=== PATIENT | female | born 2000 ===

== ENCOUNTER 2021-05-31 00:47 | Inpatient (IN) | payer MEDICAID, SELFPAY ==
[2021-05-31] VITALS (7 sets, daily range): BP systolic 103–150; BP diastolic 59–91; PULSE 86–109; RESP 16–21; TEMP 36.1–37; O2SAT 92–97; BMI 72.4
--- NOTE | 2021-05-31 02:46 | PC.NURSE ---
21/F direct admit from [place], pt lives with her sister and aunt. Reports history of depression. Pt woke up this morning, went to the kitchen and grabbed a knife with intent to cut her wrists. No precipitating factors. Pt does not know why she wanted to kill herself. She denies SI at this time.
[2021-05-31 06:39] LABS: Glucose Point of Care 94 mg/dL (70-110)
[2021-05-31] MEDS: metformin XR 500 MG Tablet 750 MG PO ×2 (08:52→17:30)
[2021-05-31] MEDS: amlodipine 10 mg Tablet PO (08:52)
[2021-05-31] MEDS: levothyroxine 25 mcg Tablet PO (08:53)
[2021-05-31] MEDS: metoprolol succinate ER (24 HR) 25 mg Tablet PO (08:53)
[2021-05-31] MEDS: TRAMadol 50 mg Tablet PO (08:53)
[2021-05-31] MEDS: pantoprazole DR 40 mg Tablet PO (08:53)
[2021-05-31] MEDS: sertraline 100 mg Tablet PO (08:53)
[2021-05-31] MEDS: nicotine 21 mg Patch 1 PATCH TRANSDERMA (08:55)
[2021-05-31 11:32] LABS: Glucose Point of Care 88 mg/dL (70-110)
[2021-05-31] MEDS: nicotine 2 mg Gum BUCCAL ×2 (15:06→17:32)
[2021-05-31 16:44] LABS: Glucose Point of Care 101 mg/dL (70-110)
[2021-05-31] MEDS: montelukast sodium 10 mg Tablet PO (17:32)
--- NOTE | 2021-05-31 20:20 | P.HP_ITS ---
Providers/Chief Complaint Admitting Physician: Amish Snyder MD Chief Complaint: SI HPI NPU History of Present Illness Haylee Malki is a 21 year old female with depression, anxiety, morbid obesity, and sleep eating who was transferred from an outside ED due to suicide attempt. Apparently her sister was trying to wake her up while she was sleepwalking, and she got agitated, grabbed a knife, and tried to stab herself. The patient is not exactly sure why this happened. She does report depression, with insomnia, increased appetite, poor energy and motivation, and suicidal ideation over the past few weeks. On my questioning, she has no history of manic symptoms but she does say she has had a diagnosis of Bipolar Disorder in the past. She does say she has had periods of intense anger. She does have significant anxiety. No auditory or visual hallucinations. She says she drinks 1 or 2 beers once or twice a month and otherwise has no other drug use. She does smoke cigarettes at 1-1/2 packs/day. She says she has never been hospitalized for psychiatric reasons before. She recently saw a psychiatric provider and was started on Zoloft 100 mg daily and Seroquel 50 mg twice daily. She has been in therapy in the past through [facility] in [place], [place] and has made contact with them to restart her treatment. She says her diagnoses have included bipolar disorder, depression, anxiety, PTSD, ADHD and sensory integration issues. Psychiatric history: As above. Substance use history: As above. Family history: Patient says that her maternal aunt and maternal grandfather magdiel th had bipolar disorder. She has a cousin who has had suicidal ideation. There is no substance abuse in the family. Psychosocial history: She grew up in [facility] and dropped out of school in the 10th grade after her father . She has never been or had any children. Legal history: No legal difficulties. Medical history: She says she has polycystic ovarian syndrome, asthma, and amblyopia. She also has morbid obesity. Meds NPU Home Medications Medication Instructions Recorded Confirmed Last Taken Type adalimumab [Humira] 40 mg SUBCUT Q14D 05/31/21 05/31/21 Unknown History albuterol sulfate 2 inh INHALATION Q4H 05/31/21 05/31/21 Unknown History albuterol sulfate 2.5 mg INHALATION QID PRN 05/31/21 05/31/21 Unknown History amlodipine 10 mg PO DAILY 05/31/21 05/31/21 Unknown History apremilast 30 mg PO BID 05/31/21 05/31/21 Unknown History fluticasone propion-salmeterol 1 inh INHALATION BID 05/31/21 05/31/21 Unknown History [Advair Diskus] fluticasone propionate [Flovent 1 puff INHALATION BID 05/31/21 05/31/21 Unknown History HFA] levothyroxine 25 mcg PO DAILY 05/31/21 05/31/21 Unknown History metformin 750 mg PO BID 05/31/21 05/31/21 Unknown History metoprolol succinate 25 mg PO DAILY 05/31/21 05/31/21 Unknown History montelukast 10 mg PO QPM 05/31/21 05/31/21 Unknown History norethindrone (contraceptive) 0.35 mg PO DAILY 05/31/21 05/31/21 Unknown History norethindrone (contraceptive) 0.35 mg PO DAILY 05/31/21 05/31/21 Unknown History [Ortho Micronor] omeprazole 40 mg PO DAILY 05/31/21 05/31/21 Unknown History sertraline 100 mg PO DAILY 05/31/21 05/31/21 Unknown History tramadol 50 mg PO DAILY 05/31/21 05/31/21 Unknown History Allergies Allergy/AdvReac Type Severity Reaction Status Date / Time clove Allergy Unknown Verified 05/31/21 01:10 Mental Status Exam MSE Comments: I met with the patient in the dayroom, and she was dressed in hospital scrubs and appropriately groomed. She was calm, cooperative, interactive, and made fair eye contact. Some psychomotor agitation. Speech is at a regular rate and rhythm, normal volume, good articulation, not pressured. Alert, oriented to person, place, time, situation. Attention and concentration were intact. Able to spell the word WORLD correctly forwards and backwards. Memory is intact. Remembers 3/3 words immediately and 3/3 at 3 minutes. He knows the names of the past 5 presidents. Mood is depressed and anxious. Affect is pleasant. Thought process is logical and goal-directed. Thought content: Denies auditory and visual hallucinations. No delusions or paranoia are noted. No current suicidal ideation, and no homicidal ideation. Fund of knowledge is intact to exam. Language is intact to exam. Insight and judgment appear to be fair. Impulse control is fair as well. Vitals/I&O/Wt Last Vital Signs Temp 98.6 F 05/31/21 06:00 Pulse 94 05/31/21 06:00 Resp 18 05/31/21 06:00 BP 132/85 05/31/21 06:00 Pulse Ox 97 05/31/21 06:00 Weight last 48 hrs Weight 185.519 kg A&P Additional A&P Information 1. Continue current medication. 2. Continue every 15 minute checks for safety. 3. Encourage individual, group and milieu therapies. 4. Encourage sober living treatment after discharge at the highest level of care to which he is willing to commit. Attestations NPU Medical Necessity Statement*: Psychiatric hospitalization is medically necessary to prevent access to lethal means, to reevaluate medication, and to coordinate a safe discharge. Patient will be in the hospital for over 2 midnights. Likely length of stay is 3 to 5 days. Coding Level of Care Code Acute Table Games Manager for Isis Tejeda
[2021-06-01 06:00] VITALS: BP 120/72; PULSE 83; RESP 18; TEMP 36.7; O2SAT 97
[2021-06-01 07:09] LABS: Glucose Point of Care 100 mg/dL (70-110)
[2021-06-01] MEDS: nicotine 21 mg Patch 1 PATCH TRANSDERMA (07:56)
[2021-06-01] MEDS: sertraline 100 mg Tablet PO (07:57)
[2021-06-01] MEDS: metformin XR 500 MG Tablet 750 MG PO ×2 (07:57→16:51)
[2021-06-01] MEDS: pantoprazole DR 40 mg Tablet PO (07:58)
[2021-06-01] MEDS: TRAMadol 50 mg Tablet PO (07:58)
[2021-06-01] MEDS: levothyroxine 25 mcg Tablet PO (07:58)
[2021-06-01] MEDS: metoprolol succinate ER (24 HR) 25 mg Tablet PO (07:58)
[2021-06-01] MEDS: amlodipine 10 mg Tablet PO (07:59)
[2021-06-01 09:37] VITALS: PULSE 104; RESP 20; O2SAT 96
[2021-06-01 14:00] VITALS: BP 123/85; PULSE 86; RESP 18; TEMP 36.8; O2SAT 96
--- NOTE | 2021-06-01 14:11 | P.PN_ITS ---
Subjective NPU Subjective: Interval history: The patient says her mood is a little better today, but she is tired. She had an okay night and slept okay. No nightmares. She is not feeling as down on herself. Denies suicidal ideation. She says the groups have been helping her. She says, I found out that there are people who want me around. For example her sister. She denies medication side effects. We talked about her medication. I suggested adding Wellbutrin to augment the Zoloft and she gave consent. Mental Status Exam MSE Comments: I met with the patient in the dayroom, and she was dressed in hospital scrubs and appropriately groomed. She was calm, cooperative, interactive, and made fair eye contact. Some psychomotor agitation. Speech is at a regular rate and rhythm, normal volume, good articulation, not pressured. Alert, oriented to person, place, time, situation. Attention and concentration were intact to exam. Memory is adequate for exam. Mood is depressed and anxious. Affect is pleasant. Thought process is logical and goal-directed. Thought content: Denies auditory and visual hallucinations. No delusions or paranoia are noted. No current suicidal ideation, and no homicidal ideation. Insight and judgment appear to be fair. Impulse control is fair as well. Vitals/I&O/Wt Last Vital Signs Temp 98.1 F 06/01/21 06:00 Pulse 104 H 06/01/21 09:37 Resp 20 H 06/01/21 09:37 BP 120/72 06/01/21 06:00 Pulse Ox 96 06/01/21 09:37 Weight last 48 hrs Weight 185.519 kg A&P Assessment and plan (1) Major depressive disorder, recurrent severe without psychotic features: Status: Acute (2) Anxiety disorder, unspecified: Status: Acute (3) Parasomnia, unspecified: Status: Acute Additional A&P Information 1. Continue current medication. Add Wellbutrin SR 150 mg daily to augment Zoloft antidepressant effect. 2. Continue every 15 minute checks for safety. 3. Encourage individual, group and milieu therapies. 4. Encourage sober living treatment after discharge at the highest level of care to which he is willing to commit. Attestations NPU Medical Necessity Statement*: Psychiatric hospitalization is medically necessary to prevent access to lethal means, to reevaluate medication, and to coordinate a safe discharge. Likely length of stay is 2 to 4 days. Coding Level of Care Code Acute Manager Fine for Chg Fwd Diagnoses Major depressive disorder, recurrent severe without psychotic features F33.2 Anxiety disorder, unspecified F41.9 Parasomnia, unspecified G47.50
[2021-06-01] MEDS: montelukast sodium 10 mg Tablet PO (16:51)
[2021-06-01] MEDS: nicotine 2 mg Gum BUCCAL (18:33)
[2021-06-01 20:00] VITALS: BP 130/93; PULSE 82; RESP 16; TEMP 36.2
[2021-06-01] MEDS: buPROPion SR (12 HR) 150 mg Tablet PO (21:08)
[2021-06-01 21:15] VITALS: PULSE 87; RESP 18; O2SAT 97
[2021-06-01] MEDS: acetaminophen 325 mg Tablet 650 MG PO (21:32)
[2021-06-01 22:00] VITALS: BP 130/93; PULSE 87; RESP 18; TEMP 36.2; O2SAT 97
[2021-06-02 06:00] VITALS: BP 124/74; PULSE 88; RESP 20; TEMP 36.6; O2SAT 93
[2021-06-02 06:39] LABS: Glucose Point of Care 94 mg/dL (70-110)
[2021-06-02] MEDS: buPROPion SR (12 HR) 150 mg Tablet PO ×2 (08:06→20:51)
[2021-06-02] MEDS: sertraline 100 mg Tablet PO (08:06)
[2021-06-02] MEDS: TRAMadol 50 mg Tablet PO (08:06)
[2021-06-02] MEDS: levothyroxine 25 mcg Tablet PO (08:06)
[2021-06-02] MEDS: metoprolol succinate ER (24 HR) 25 mg Tablet PO (08:07)
[2021-06-02] MEDS: pantoprazole DR 40 mg Tablet PO (08:07)
[2021-06-02] MEDS: amlodipine 10 mg Tablet PO (08:07)
[2021-06-02] MEDS: metformin XR 500 MG Tablet 750 MG PO ×2 (08:08→17:00)
[2021-06-02] MEDS: nicotine 21 mg Patch 1 PATCH TRANSDERMA (08:09)
[2021-06-02 09:43] VITALS: PULSE 90; RESP 20; O2SAT 98
[2021-06-02] MEDS: acetaminophen 325 mg Tablet 650 MG PO (11:58)
[2021-06-02 13:57] VITALS: BP 112/72; PULSE 96; RESP 20; TEMP 36.6; O2SAT 95
[2021-06-02] MEDS: calcium carbonate 500 mg Chew Tablet PO (15:56)
--- NOTE | 2021-06-02 15:56 | PC.NURSE ---
PRN TUMS 500 MG GIVEN PO PER PT C/O INDIGESTION
[2021-06-02] MEDS: montelukast sodium 10 mg Tablet PO (17:00)
--- NOTE | 2021-06-02 17:28 | PM.NPN ---
Subjective NPU Subjective: Interval history: Patient presents today reporting that she is doing pretty good though she would like to restart her Prilosec, however she is already getting medication for that so we discussed that she can start the Prilosec when she gets home. Additionally discussed the fact that her Wellbutrin SR evening dose was later than it should be likely contributing to her insomnia. We discussed the risk of its alternatives of switching that dose to earlier in the day last evening and she understood and agreed proceed as documented in this note. Mental Status Exam MSE Comments: This is a morbidly obese white female in hospital scrubs with adequate grooming and eye contact. No abnormal movements except for mild psychomotor retardation. Cooperative with exam in no acute distress. Speech was decreased rate and volume. Mood described as a little better, affect congruent. Thought is organized. Thought content: Patient denied suicidal or homicidal ideation, there are no delusions reported or noted, she denied any auditory or visual hallucinations. Attention and concentration appeared intact and memory appeared reliable but never formally tested. She alert and oriented x3. Insight and judgment appear fair impulse control is limited. Vitals/I&O/Wt Last Vital Signs Temp 97.9 F 06/02/21 13:57 Pulse 96 06/02/21 13:57 Resp 20 H 06/02/21 13:57 BP 112/72 06/02/21 13:57 Pulse Ox 95 06/02/21 13:57 A&P Additional A&P Information (1) Major depressive disorder, recurrent severe without psychotic features: (2) Anxiety disorder, unspecified: (3) Parasomnia, unspecified: Additional A&P Information 1. Continue current medication. Switch Wellbutrin SR evening dose to between 5 and 6 PM. 2. Continue every 15 minute checks for safety. 3. Encourage individual, group and milieu therapies. 4. Encourage sober living treatment after discharge at the highest level of care to which he is willing to commit. Attestations NPU Medical Necessity Statement*: Psychiatric hospitalization is medically necessary to prevent access to lethal means, to reevaluate medication, and to coordinate a safe discharge. Likely length of stay is 1-3 days. Coding Level of Care Code Acute Director Hardware for Isis Tejeda
--- NOTE | 2021-06-02 17:54 | PC.NURSE ---
1700 blood sugar not done, pt refused
[2021-06-02 19:38] LABS: Glucose Point of Care 108 mg/dL (70-110)
[2021-06-02 20:46] VITALS: PULSE 86; RESP 18; O2SAT 95
[2021-06-02] MEDS: ondansetron 4 MG Tablet PO (20:51)
[2021-06-02 21:50] VITALS: BP 150/82; PULSE 102; RESP 18; TEMP 36.2; O2SAT 92
[2021-06-03] MEDS: metformin XR 500 MG Tablet 750 MG PO ×2 (08:21→17:00)
[2021-06-03] MEDS: TRAMadol 50 mg Tablet PO (08:21)
[2021-06-03] MEDS: levothyroxine 25 mcg Tablet PO (08:21)
[2021-06-03] MEDS: sertraline 100 mg Tablet PO (08:21)
[2021-06-03] MEDS: amlodipine 10 mg Tablet PO (08:21)
[2021-06-03] MEDS: pantoprazole DR 40 mg Tablet PO (08:21)
[2021-06-03] MEDS: buPROPion SR (12 HR) 150 mg Tablet PO ×3 (08:22→19:45)
[2021-06-03] MEDS: metoprolol succinate ER (24 HR) 25 mg Tablet PO (08:22)
[2021-06-03] MEDS: nicotine 21 mg Patch 1 PATCH TRANSDERMA (08:22)
--- NOTE | 2021-06-03 11:36 | P.PN_ITS ---
Subjective NPU Subjective: Interval history: Haylee presents today reporting that she is starting to feel better and feeling optimistic that she can manage things after discharge. We discussed the risk benefits and alternatives of getting her medication ordered and discharging her in the morning. We discussed the process of Medicaid rides and how that works. She denies any major issues or any reason to make any changes at this time. Mental Status Exam MSE Comments: This is a morbidly obese white female in hospital scrubs with adequate grooming and eye contact. No abnormal movements except for mild psychomotor retardation. Cooperative with exam in no acute distress. Speech was decreased rate and volume. Mood described as pretty good, affect congruent. Thought process is organized. Thought content: Patient denied suicidal or homicidal ideation, there are no delusions reported or noted, she denied any auditory or visual hallucinations. Attention and concentration appeared intact and memory appeared reliable but never formally tested. She alert and oriented x3. Insight and judgment appear fair impulse control is improving. Vitals/I&O/Wt Last Vital Signs Temp 97.2 F L 06/02/21 21:50 Pulse 102 H 06/02/21 21:50 Resp 18 06/02/21 21:50 BP 150/82 06/02/21 21:50 Pulse Ox 92 06/02/21 21:50 A&P Additional A&P Information (1) Major depressive disorder, recurrent severe without psychotic features: (2) Anxiety disorder, unspecified: (3) Parasomnia, unspecified: 1. Continue current medication. 2. Continue every 15 minute checks for safety. 3. Encourage individual, group and milieu therapies. 4. Encourage sober living treatment after discharge at the highest level of care to which he is willing to commit. 5. Likely discharge in the morning. Attestations NPU Medical Necessity Statement*: Psychiatric hospitalization is medically necessary to prevent access to lethal means, to reevaluate medication, and to coordinate a safe discharge. Likely length of stay is 1-2 days. Coding Level of Care Code Acute Funeral Director for Isis Tejeda
[2021-06-03 14:00] VITALS: BP 107/69; PULSE 102; RESP 20; TEMP 36.5; O2SAT 97
[2021-06-03] MEDS: montelukast sodium 10 mg Tablet PO (19:45)
[2021-06-03] MEDS: ibuprofen 800 mg tablet PO (20:52)
[2021-06-03 22:00] VITALS: BP 153/82; PULSE 79; RESP 18; TEMP 36.9; O2SAT 98
--- NOTE | 2021-06-04 03:03 | PC.NURSE ---
PRN 2052 Administered Motrin 800mg for pt c/o back pain. Will continue to monitor pt.
[2021-06-04 06:00] VITALS: BP 109/71; PULSE 86; RESP 17; TEMP 36.8; O2SAT 97
[2021-06-04] MEDS: metformin XR 500 MG Tablet 750 MG PO (08:50)
[2021-06-04] MEDS: sertraline 100 mg Tablet PO (08:51)
[2021-06-04] MEDS: levothyroxine 25 mcg Tablet PO (08:51)
[2021-06-04] MEDS: amlodipine 10 mg Tablet PO (08:51)
[2021-06-04] MEDS: buPROPion SR (12 HR) 150 mg Tablet PO ×2 (08:51)
[2021-06-04] MEDS: metoprolol succinate ER (24 HR) 25 mg Tablet PO (08:52)
[2021-06-04] MEDS: nicotine 21 mg Patch 1 PATCH TRANSDERMA (08:52)
[2021-06-04] MEDS: pantoprazole DR 40 mg Tablet PO (08:52)
--- NOTE | 2021-06-04 08:53 | P.DS_ITS ---
Diagnoses at Discharge Discharge Diagnosis (1) Major depressive disorder, recurrent severe without psychotic features: Status: Acute (2) Anxiety disorder, unspecified: Status: Acute (3) Parasomnia, unspecified: Status: Acute Reason for Visit Reason for Visit: SI Brief History: History of Present Illness Haylee Malik is a 21 year old female with depression, anxiety, morbid obesity, and sleep eating who was transferred from an outside ED due to suicide attempt. Apparently her sister was trying to wake her up while she was sleepwalking, and she got agitated, grabbed a knife, and tried to stab herself. The patient is not exactly sure why this happened. She does report depression, with insomnia, increased appetite, poor energy and motivation, and suicidal ideation over the past few weeks. On my questioning, she has no history of manic symptoms but she does say she has had a diagnosis of Bipolar Disorder in the past. She does say she has had periods of intense anger. She does have significant anxiety. No auditory or visual hallucinations. She says she drinks 1 or 2 beers once or twice a month and otherwise has no other drug use. She does smoke cigarettes at 1-1/2 packs/day. She says she has never been hospitalized for psychiatric reasons before. She recently saw a psychiatric provider and was started on Zoloft 100 mg daily and Seroquel 50 mg twice daily. She has been in therapy in the past through [facility] in [place], [place] and has made contact with them to restart her treatment. She says her diagnoses have included bipolar disorder, depression, anxiety, PTSD, ADHD and sensory integration issues. Psychiatric history: As above. Substance use history: As above. Family history: Patient says that her maternal aunt and maternal grandfather both had bipolar disorder. She has a cousin who has had suicidal ideation. There is no substance abuse in the family. Psychosocial history: She grew up in [facility] and dropped out of school in the 10th grade after her father . She has never been or had any children. Legal history: No legal difficulties. Medical history: She says she has polycystic ovarian syndrome, asthma, and amblyopia. She also has morbid obesity. Hospital Course Hospital Course She slowly acclimated to the individual, group and mood therapies provided. Zoloft was continued along with her other medications. Wellbutrin was also started with marked improvement. She was able to contract for safety prior to discharge. At the outside hospital, patient had routine laboratory studies which were within normal limits except for few outliers. Additionally there was a general medical evaluation which was also within normal limits and revealed no new acute processes. Discharge Summary: At the time of discharge, she denied psychosis or lethality. Mood and anxiety were well managed. Patient endorsed a plan to avoid all drugs of abuse and follow-up with the aftercare recommendations of the treatment team. Patient was evaluated and deemed to be absent credible lethality, and had achieved the maximum benefit from an inpatient hospitalization, so was discharged. Mental Status Exam MSE Comments: This is a morbidly obese white female in hospital scrubs with adequate grooming and eye contact. No abnormal movements except for mild psy chomotor retardation. Cooperative with exam in no acute distress. Speech was decreased rate and volume. Mood described as pretty good, affect congruent. Thought process is organized. Thought content: Patient denied suicidal or homicidal ideation, there are no delusions reported or noted, she denied any auditory or visual hallucinations. Attention and concentration appeared intact and memory appeared reliable but never formally tested. She alert and oriented x3. Insight and judgment appear fair impulse control is improving. Discharge Data Vitals: Last Vital Signs Temp 98.2 F 06/04/21 06:00 Pulse 86 06/04/21 06:00 Resp 17 06/04/21 06:00 BP 109/71 06/04/21 06:00 Pulse Ox 97 06/04/21 06:00 Discharge Plan Discharge Patient Disposition: Home Condition: Stable Prescriptions: New bupropion HCl 150 mg Tablet Sustained-Release 12 Hr 150 mg PO BID@0800,1800 30 Days Qty: 60 RF: 1 Continued Advair Diskus 250-50 mcg/dose Blister With Device 1 inh INHALATION BID RF: 0 albuterol sulfate 2.5 mg /3 mL (0.083 %) Solution For Nebulization 2.5 mg INHALATION QID PRN (Reason: Shortness Of Breath Or Wheezing) RF: 0 omeprazole 40 mg Capsule,Delayed Release(Dr/Ec) 40 mg PO DAILY RF: 0 tramadol 50 mg Tablet 50 mg PO DAILY RF: 0 amlodipine 10 mg Tablet 10 mg PO DAILY RF: 0 montelukast 10 mg Tablet 10 mg PO QPM RF: 0 Flovent HFA 220 mcg/actuation Hfa Aerosol Inhaler 1 puff INHALATION BID RF: 0 Ortho Micronor 0.35 mg Tablet 0.35 mg PO DAILY RF: 0 norethindrone (contraceptive) 0.35 mg Tablet 0.35 mg PO DAILY RF: 0 Humira 40 mg/0.8 mL Syringe Kit 40 mg SUBCUT Q14D RF: 0 metformin 750 mg Tablet Extended Release 24 Hr 750 mg PO BID RF: 0 levothyroxine 25 mcg Capsule 25 mcg PO DAILY RF: 0 apremilast 30 mg Tablet 30 mg PO BID RF: 0 metoprolol succinate 25 mg Capsule,Sprinkle,Er 24hr 25 mg PO DAILY RF: 0 albuterol sulfate 90 mcg/actuation Aero Powdr Breath Act W/Sensor 2 inh INHALATION Q4H RF: 0 sertraline 100 mg Tablet 100 mg PO DAILY 30 Days Qty: 30 RF: 1 Discharge Orders: Discharge Order (Routine); Ordered 06/04/21 Ordered By: Prince Malone Referrals: [facility] [Other] - 06/07/21 11:00 am (Follow up appointment with Wing Martinez on 06/07/21 @ 11:00am) [facility] [Other] - 06/14/21 3:30 pm (Appointment with Chaya Garcia on 06/14/21 @ 4:00. Please check in by 3:30pm to complete paperwork. ) [facility] [Other] (Can provide group therapy) Discharge Diet: Diabetic Discharge Activity: Resume usual activity Patient Instructions: Opioid Safety Discharge Attestations NPU Time Spent in Discharge Care*: less than 30 min Specific Discharge Activities: Specific discharge activities: educating patient, discussing with family caseworker/social workers/dc planners, documenting/other paperwork and evaluating patient/reviewing data Coding Level of Care Code Acute [facility] FW DC note Diagnoses Major depressive disorder, recurrent severe without psychotic features F33.2 Anxiety disorder, unspecified F41.9 Parasomnia, unspecified G47.50
[2021-06-04 09:16] VITALS: BP 109/71; PULSE 86; RESP 17; TEMP 36.8; O2SAT 97
[2021-06-04 13:40] LABS: Glucose Point of Care 103 mg/dL (70-110)
[2021-06-04 13:40] LABS: Glucose Point of Care 116 mg/dL (70-110)
== END 2021-06-04 14:52 | disposition home or self-care (01) | DRG 885 ==
PROVIDERS: Admitting Provider Psychiatry & Neurology Child & Adolescent Psychiatry; Visit Provider Psychiatry & Neurology Psychiatry
DX: F33.2 Major depressive disorder, recurrent severe without psychotic features (principal); Z68.45 Body mass index [BMI] 70 or greater, adult; R45.851 Suicidal ideations; F41.9 Anxiety disorder, unspecified; E66.01 Morbid (severe) obesity due to excess calories; F17.210 Nicotine dependence, cigarettes, uncomplicated; F43.10 Post-traumatic stress disorder, unspecified; F90.9 Attention-deficit hyperactivity disorder, unspecified type; Z81.8 Family history of other mental and behavioral disorders; E28.2 Polycystic ovarian syndrome; J45.909 Unspecified asthma, uncomplicated; G47.50 Parasomnia, unspecified
CPT/HCPCS: 36416; 82962; 94640; J3535; Q0162